=== PATIENT | female | born 1960 | race Caucasian/White ===

== ENCOUNTER 2016-04-28 11:12 | Outpatient (CLI) | payer MEDICAID | END 2016-04-28 11:13 | disposition home or self-care (01) | DX: M47.812 Spondylosis without myelopathy or radiculopathy, cervical region (principal); M50.323 Other cervical disc degeneration at C6-C7 level; R20.0 Anesthesia of skin; Z98.1 Arthrodesis status ==

== ENCOUNTER 2016-05-21 11:45 | Outpatient (CLI) | payer MEDICAID | END 2016-05-21 23:59 | disposition home or self-care (01) | DX: N39.0 Urinary tract infection, site not specified (principal) ==

== ENCOUNTER 2016-06-19 15:17 | Outpatient (CLI) | payer MEDICAID | END 2016-06-19 15:18 | disposition home or self-care (01) | DX: M50.31 Other cervical disc degeneration, high cervical region (principal); M47.892 Other spondylosis, cervical region; M48.02 Spinal stenosis, cervical region; M50.21 Other cervical disc displacement, high cervical region; M62.81 Muscle weakness (generalized); M79.603 Pain in arm, unspecified; Z98.1 Arthrodesis status ==

== ENCOUNTER 2016-11-09 10:12 | Outpatient (CLI) | payer MEDICAID ==
--- NOTE | 2016-11-12 15:47 | Mammography Report ---
DIGITAL SCREENING MAMMOGRAM: 11/09/2016 CLINICAL INDICATION: A 56-year-old with history of late childbearing, for screening. COMPARISON: 08/2015, 01/2009, 05/2007, 04/2007. TECHNIQUE: Routine CC and MLO projections were obtained of the breasts. Bilateral laterally exaggera lay craniocaudal views. FINDINGS: Scattered fibroglandular tissue is present within the breasts. There are no dominant raquel s, suspicious microcalcifications, or secondary signs of malignancy. In comparison to the previous st udies, there are no significant changes. ASSESSMENT: NO MAMMOGRAPHIC EVIDENCE OF MALIGNANCY. NO SIGNIFICANT INTERVAL CHANGES. RECOMMENDATION: Screening mammography is recommended annually. BIRADS category 1 - negative. STANDARD QUALIFYING STATEMENTS 1. This examination was reviewed with the aid of Computed-Aided Detection (CAD). 2. A negative or benign imaging report should not delay biopsy if clinically suspicious findings are present. Consider surgical consultation if warranted. More than 5% of cancers are not identified by i maging. 3. Dense breasts may obscure an underlying neoplasm. JOB #: [id number] EXT JOB #:[id number]
== END 2016-11-09 10:13 | disposition home or self-care (01) ==
LOC: DI.S 10:12
PROVIDERS: ATTEND Nurse Practitioner Family
DX: Z12.31 Encounter for screening mammogram for malignant neoplasm of breast (principal)
CPT/HCPCS: 77067

== ENCOUNTER 2016-11-15 10:58 | Outpatient (CLI) | payer MEDICAID ==
[2016-11-15 19:18] LABS: ALBUMIN/GLOBULIN RATIO 1.7 (1.0-2.2); BILIRUBIN,TOTAL 0.7 mg/dL (0.2-1.0); BUN - BLOOD UREA NITROGEN 20 mg/dL (6-20); CALCIUM 9.1 mg/dL (8.5-10.3); CARBON DIOXIDE - CO2 26 mmol/L (21-32); CHLORIDE 104 mmol/L (101-111); CHOL/HDL RATIO 5.8 (<4.4); CHOLESTEROL 279 mg/dL; CREATININE 0.9 mg/dL (0.4-1.0); GFR - MDRD 65 (>89); GLUCOSE 94 mg/dL (70-100); HDL CHOLESTEROL 48 mg/dL; LDL/HDL RATIO 3.6 (<4.4); POTASSIUM 4.2 mmol/L (3.5-5.0); SODIUM 139 mmol/L (135-145); TOTAL PROTEIN 7.2 g/dL (6.7-8.2); TRIGLYCERIDES 291 mg/dL; VLDL CHOLESTEROL 58 mg/dL
== END 2016-11-15 10:59 | disposition home or self-care (01) ==
LOC: LAB.F 10:58
PROVIDERS: ATTEND Nurse Practitioner Family
DX: E78.9 Disorder of lipoprotein metabolism, unspecified (principal)
CPT/HCPCS: 36415; 80053; 80061

== ENCOUNTER 2017-05-20 14:52 | Outpatient (CLI) | payer MEDICAID ==
[~2017-05-20 14:52] MED LIST: IOPAMIDOL-300 100 ML VIAL ONE
[2017-05-20] MEDS ORDERED: IOPAMIDOL-300 100 ML VIAL ONE (15:08)
[2017-05-20] MEDS ORDERED: IOPAMIDOL-300 100 ML VIAL IVP ONE ×3 (15:57→16:01)
--- NOTE | 2017-05-21 14:11 | CT Report ---
EXAM: CT ANGIOGRAM HEAD. CT SCAN OF THE HEAD WITHOUT AND WITH CONTRAST. EXAM DATE: 05/20/2017 04:11 PM CLINICAL HISTORY: VERTIGO, PRE-SYNCOPE W/NECK HYPEREXTENSTION. COMPARISON: CT head 12/17/2013 TECHNIQUE: - CT Scan Head: Using a multidetector scanner, axial images were acquired from the foramen magnum to the skull vertex prior to and following contrast administration. - CT Angiogram: Using a multidetector scanner, high-resolution axial images were acquired from the sk ull base through vertex following rapid infusion of intravenous contrast. Reformats: Multiplanar MIP reformats were reconstructed. Nascet criteria used for stenosis measurement. IV Contrast: 80 cc Isovue 300. In accordance with CT protocol optimization, one or more of the following dose reduction techniques w ere utilized for this exam: automated exposure control, adjustment of mA and/or KV based on patient s ize, or use of iterative reconstructive technique. FINDINGS: NON-CONTRAST HEAD: Parenchyma: No intraparenchymal hemorrhage. No evidence of mass, midline shift, or CT findings of inf arction. Andrews-white differentiation is distinct. Extraaxial Spaces: Normal for age. No subdural or epidural collections identified. Ventricles: Normal in size and position. Sinuses and orbits: Imaged paranasal sinuses, orbits, and mastoids show no significant abnormality. Bones: No evidence of fracture or calvarial defect. Other: None. POST-CONTRAST HEAD: No abnormal enhancement. CT ANGIOGRAM HEAD: The right carotid siphon is unremarkable. The left carotid siphon is unremarkable the visualized port ions of the vertebral arteries bilaterally are unremarkable the basilar artery is unremarkable. The r ight MCA is unremarkable. The ACAs bilaterally are unremarkable. The left MCA is unremarkable. The po sterior communicating arteries are not clearly visualized on either side, likely hypoplastic or aplas tic. The posterior cerebral arteries bilaterally are unremarkable. DURAL VENOUS SINUSES AND MAJOR CENTRAL VEINS: Patent. IMPRESSION: 1. No CT evidence of acute intracranial abnormality, specifically no CT evidence of acute infarct, in tracranial hemorrhage, mass effect, midline shift, or hydrocephalus. 2. No abnormal enhancement on the postcontrast CT head. 3. No CTA evidence of hemodynamically significant stenosis, dissection, occlusion, aneurysm, or vascu lar malformation within the intracranial arteries. 4. Concurrently obtained CTA neck is dictated separately. [facility] Referring Provider Line: [phone] SITE ID: [id number]
--- NOTE | 2017-05-21 14:26 | CT Report ---
EXAM: CT ANGIOGRAM NECK EXAM DATE: 05/20/2017 04:13 PM. CLINICAL HISTORY: VERTIGO, PRE-SYNCOPE W/NECK HYPEREXTENSTION. COMPARISON: None. TECHNIQUE: Routine axial helical imaging was performed from the skull base through the aortic arch. R econstructions: Routine multiplanar 3D MIP reconstructions. IV Contrast: Yes. 80 cc Isovue 300 Evalua tion of arterial stenosis is based on a NASCET method of measurement. In accordance with CT protocol optimization, one or more of the following dose reduction techniques w ere utilized for this exam: automated exposure control, adjustment of mA and/or KV based on patient s ize, or use of iterative reconstructive technique. FINDINGS: Right Carotid: The common carotid, internal carotid, and external carotid arteries are widely patent. No dissection, significant atherosclerotic plaque, or calcification identified. Medialized partially retropharyngeal course of the distal right common carotid artery and proximal cervical right interna l carotid artery. Left Carotid: The common carotid, internal carotid, and external carotid arteries are widely patent. No dissection, significant atherosclerotic plaque, or calcification identified. Vertebrals: The vertebral arteries are nearly codominant. There is approximately 20-30% narrowing of the right vertebral artery at C6-C7 level (series 2 image 221) due to degenerative spondylosis at C6- C7 level. The vertebrobasilar system shows no stenoses. Intracranial Circulation: Concurrently obtained CTA head is dictated separately. Other: Several calcifications within the left upper lobe of the lung, favored to represent calcified granulomata. Moderate multilevel degenerative spondylosis of the visualized spine status post C4-C5 A CDF, no acute fracture or malalignment. Only part of right thyroid lobe is visualized, is patient sta tus post thyroidectomy? The visualized soft tissues of the neck are otherwise unremarkable. IMPRESSION: 1. Approximately 20-30% narrowing of the right vertebral artery at C6-C7 level (series 2 image 221) d ue to degenerative spondylosis at C6-C7 level. 2. Otherwise no other CTA evidence of hemodynamically significant stenosis, dissection, occlusion, an eurysm, or vascular malformation within the extracranial arteries. Evaluation of carotid stenosis is by NASCET criteria . 3. CTA of the head is dictated separately. 4. Incidental findings as above. [facility] Referring Provider Line: [phone] SITE ID: [id number]
== END 2017-05-20 14:53 | disposition home or self-care (01) ==
LOC: DI 14:52
PROVIDERS: ATTEND Registered Nurse
DX: R42 Dizziness and giddiness (principal); R55 Syncope and collapse; M47.892 Other spondylosis, cervical region
CPT/HCPCS: 70496; 70498; Q9967

== ENCOUNTER 2017-05-30 13:56 | Emergency (ER) | payer MEDICAID ==
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
[2017-05-30 15:41] LABS: EOSINOPHILS # (AUTO) 0.1 10^3/uL (0.0-0.7); HGB - HEMOGLOBIN 11.4 g/dL (12.0-16.0); LYMPHOCYTES # (AUTO) 1.9 10^3/uL (1.5-3.5); LYMPHOCYTES % (AUTO) 41.2 %; MEAN CORPUSCULAR HEMOGLOBIN 35.8 pg (27.0-31.0); MEAN CORPUSCULAR HGB CONC 33.8 g/dL (32.0-36.0); MEAN CORPUSCULAR VOLUME 105.9 fL (81.0-99.0); MEAN PLATELET VOLUME 7.2 fL (7.9-10.8); MONOCYTES # (AUTO) 0.3 10^3/uL (0.0-1.0); MONOCYTES % (AUTO) 6.8 %; NEUTROPHILS # (AUTO) 2.2 10^3/uL (1.5-6.6); PLT - PLATELET COUNT 145 10^3/uL (130-450); RED BLOOD COUNT 3.19 10^6/uL (4.20-5.40); RED CELL DISTRIBUTION WIDTH 14.1 % (12.0-15.0); WHITE BLOOD COUNT 4.6 x10^3/uL (4.8-10.8)
[2017-05-30 15:46] LABS: ALBUMIN 4.2 g/dL (3.2-5.5); ALBUMIN/GLOBULIN RATIO 1.3 (1.0-2.2); BILIRUBIN,TOTAL 0.4 mg/dL (0.2-1.0); CALCIUM 8.9 mg/dL (8.5-10.3); CREATININE 1.1 mg/dL (0.4-1.0); TOTAL PROTEIN 7.4 g/dL (6.7-8.2)
[2017-05-30 16:28] LABS: CRP - C-REACTIVE PROTEIN 1.2 mg/dL (0-1.0)
[2017-05-30 16:38] LABS: THYROID STIMULATING HORMONE 48.91 uIU/mL (0.34-5.60)
--- NOTE | 2017-05-30 18:22 | MRI Report ---
EXAM: MRI BRAIN WITHOUT CONTRAST EXAM DATE: 05/30/2017 05:51 PM. CLINICAL HISTORY: Altered mentation, headaches, slurred speech, trouble finding words COMPARISON: CT angiogram 05/20/2017. TECHNIQUE: Multiplanar, multisequence T1-weighted and fluid-sensitive MR sequences of the brain were performed. Sequences optimized for routine evaluation. Other: None. IV Contrast: None. FINDINGS: Diffusion weighted sequence shows no evidence for acute infarct. There is no mass, mass effect, midl ine shift or abnormal extraaxial fluid collection. Size and configuration of the ventricles are normal. Few nonspecific white matter T2 hyperintensities in bilateral frontal lobes. Otherwise signal within the cortex and white matter appear unremarkable. Brainstem and cerebellum appear normal. Major intracranial flow voids appear normal. Globes, orbits, optic nerve sheath complex, optic chiasm, pituitary, cavernous sinus and Meckel's cav e appear normal. Paranasal sinuses and mastoid air cells appear well aerated. Marrow signal and extracranial soft tissue appear normal. Craniocervical junction and visualized upper cervical cord appear unremarkable. IMPRESSION: 1. No acute infarct, intracranial hemorrhage, midline shift or hydrocephalus. 2. Mild diffuse cerebral volume loss. 3. Few nonspecific subcortical frontal T2 hyperintensities, most likely chronic microvascular angiopa thy. [facility] Referring Provider Line: [phone] SITE ID: [id number]
[2017-05-30 19:30] VITALS: BP 131/87
[2017-06-01 14:06] LABS: ANA SCREEN NEGATIVE (NEGATIVE)
== END 2017-05-30 19:30 | disposition home or self-care (01) ==
LOC: ED 13:56
DX: R42 Dizziness and giddiness (principal); R41.0 Disorientation, unspecified; R94.6 Abnormal results of thyroid function studies; I10 Essential (primary) hypertension; E78.00 Pure hypercholesterolemia, unspecified; E03.9 Hypothyroidism, unspecified; F17.200 Nicotine dependence, unspecified, uncomplicated
CPT/HCPCS: 36415; 70551; 80053; 82607; 83690; 83735; 84439; 84443; 84481; 85025; 85651; 86038; 86140; 86780; 99283; 99284

== ENCOUNTER 2017-08-10 10:43 | Outpatient (CLI) | payer MEDICAID ==
[2017-08-10 18:11] LABS: THYROID STIMULATING HORMONE 0.11 uIU/mL (0.34-5.60)
[2017-08-10 18:53] LABS: FREE T4 (FREE THYROXINE) 0.87 ng/dL (0.58-1.64)
[2017-08-11 13:12] LABS: HEPATITIS C ANTIBODY NON-REACTIVE (NON-REACTIVE)
[2017-08-11 15:05] LABS: HIV AG/AB 4TH GEN NON-REACTIVE (NON-REACTIVE)
== END 2017-08-10 10:44 | disposition home or self-care (01) ==
LOC: LAB.F 10:43
PROVIDERS: ATTEND Nurse Practitioner Family
DX: E03.9 Hypothyroidism, unspecified (principal); Z72.51 High risk heterosexual behavior
CPT/HCPCS: 36415; 81599; 84439; 84443; 86592; 86803; 87389; 87491; 87591

== ENCOUNTER 2017-12-14 04:06 | Outpatient (CLI) | payer MEDICAID | END 2017-12-14 04:07 | disposition short-term general hospital (02) | LOC: EMS 04:06 | PROVIDERS: ATTEND Surgery | DX: S91.001A Unspecified open wound, right ankle, initial encounter (principal); R42 Dizziness and giddiness; W18.39XA Other fall on same level, initial encounter; Y93.01 Activity, walking, marching and hiking; Y92.000 Kitchen of unspecified non-institutional (private) residence as the place of occurrence of the external cause | CPT/HCPCS: A0425; A0427; A0999 ==

== ENCOUNTER 2018-09-17 14:36 | Observation (INO) | payer MEDICAID ==
--- NOTE | 2018-09-17 15:18 | ED Physician Documentation ---
History of Present Illness - Stated complaint Stated Complaint: HP BP/doesn't feel right - Chief complaint Chief Complaint: Neuro - History obtained from History obtained from: Patient - History of Present Illness Timing: Prior to arrival - Additonal information Additional information: Patient is a 58-year-old female, right-handed, presenting with left arm weak ness, particularly operational assistant strength for about the past 2-1/2 hours. Patient denies any particular inciting incident, trauma, or fall. Patient is otherwise been in her normal state of health. Patient is compliant with medications. She regularly uses oxycodone for chronic pain and took this medication earlier today. Patient also reports regular use of alcohol. Patient denies headache, but fuzzy vision bilaterally. Patient denies facial droop, speech changes, paresthesias, but reports that left arm feels weaker than the other. Patient denies chest pain, difficulty breathing, abdominal pain, urinary or stool changes, fever, or other concerns. No anticoagulation. No other improving or worsening factors to her symptoms noted. Review of Systems Constitutional: denies: Fever Eyes: reports: Decreased vision Cardiac: denies: Chest pain / pressure Respiratory: denies: Dyspnea GI: denies: Abdominal Pain Neurologic: reports: Focal weakness. denies: Numbness, Difficulty speaking, Head injury PD PAST MEDICAL HISTORY - Past Medical History Past Medical History: Yes Cardiovascular: Hypertension, High cholesterol Endocrine/Autoimmune: HyPOthyroidism Psych: Depression - Past Surgical History Past Surgical History: Yes - Present Medications Home Medications: Ambulatory Orders Medication Instructions Recorded Confirmed Bupropion HCl [Wellbutrin Sr] 150 mg PO BID 11/15/12 09/16/15 Cetirizine HCl [Zyrtec] 10 mg PO DAILY 11/15/12 09/16/15 Levothyroxine Sodium [Levoxyl] 125 mcg PO DAILY 11/15/12 09/16/15 Aspirin [Adult Low Dose Aspirin EC] 81 mg PO DAILY 09/16/15 09/16/15 Atenolol 25 mg PO DAILY 09/16/15 09/16/15 Baclofen [Lioresal] 20 mg PO TID 09/16/15 09/16/15 Ibuprofen 400 mg PO Q6HR 09/16/15 09/16/15 oxyCODONE [Roxicodone] 5 mg PO Q4-6H 09/16/15 09/16/15 - Allergies Allergies/Adverse Reactions: Allergies Allergy/AdvReac Type Severity Reaction Status Date / Time Sulfa (Sulfonamide AdvReac Severe Rash Verified 12/17/13 18:19 Antibiotics) Penicillins AdvReac Unknown Rash Verified 12/17/13 18:19 - Social History Does the pt smoke?: Yes Smoking Status: Current every day smoker Does the pt drink ETOH?: Yes ETOH Use: Wine Does the pt have substance abuse?: No - Immunizations Immunizations are current?: Yes - POLST Patient has POLST: No PD ED PE NORMAL - Vitals Vital signs reviewed: Yes - General General: Alert and oriented X 3, No acute distress, Well developed/nourished, Other (Smells of alcohol) - HEENT HEENT: Atraumatic, EOMI, Moist mucous membranes, Pharynx benign, Dentition benign. No: PERRL (Miotic, minimally reactive bilaterally) - Neck Neck: Supple, no meningeal sign - Cardiac Cardiac: RRR, No murmur - Respiratory Respiratory: No respiratory distress, Clear bilaterally - Abdomen Abdomen: Normal bowel sounds, Soft, Non tender, Non distended - Derm Derm: Normal color, Warm and dry, No rash - Extremities Extremities: No deformity, No tenderness to palpate, No edema - Neuro Neuro: Alert and oriented X 3, straightening press operator helper 2-12 intact, No sensory deficit, Normal speech. No: No motor deficit (Only motor deficit noted is left hand operational assistant strength. No other changes in sensation, strength, range of motion to any extremity.) - Psych Psych: Normal mood, Normal affect Results - Vitals Vitals: Vital Signs - 24 hr 09/17/18 09/17/18 09/17/18 14:39 14:50 15:29 Temperature 37.0 C Heart Rate 64 63 67 Respiratory 18 16 16 Rate Blood Pressure 120/78 125/72 112/73 O2 Saturation 100 100 100 09/17/18 09/17/18 16:39 17:10 Temperature Heart Rate 65 74 Respiratory 16 16 Rate Blood Pressure 117/72 108/75 O2 Saturation 99 100 Oxygen O2 Source Room air - EKG (time done) 1446 Rate: Rate (enter#) (64) Rhythm: NSR - Labs Labs: Laboratory Tests 09/17/18 09/17/18 09/17/18 16:00 16:00 16:00 WBC 5.2 RBC 3.50 L Hgb 12.0 Hct 35.8 L MCV 102.4 H MCH 34.3 H MCHC 33.5 RDW 12.6 Plt Count 220 MPV 7.2 L Neut # (Auto) 2.6 Lymph # (Auto) 2.1 [place] # (Auto) 0.2 Eos # (Auto) 0.2 Baso # (Auto) 0.1 Absolute Nucleated RBC 0.00 Nucleated RBC % 0.0 PT 10.3 INR 0.9 APTT 25.0 Sodium 140 Potassium 4.3 Chloride 103 Carbon Dioxide 22 Anion Gap 15.0 H BUN 25 H Creatinine 0.8 Estimated GFR (MDRD) 73 L Glucose 66 L Calcium 8.9 Total Bilirubin 0.4 AST 31 ALT 16 Alkaline Phosphatase 95 Troponin I Total Protein 7.0 Albumin 4.2 Globulin 2.8 Albumin/Globulin Ratio 1.5 Lipase 26 TSH Urine Color Urine Clarity Urine pH Ur Specific [place] Urine Protein Urine Glucose (UA) Urine Ketones Urine Occult Blood Urine Nitrite Urine Bilirubin Urine Urobilinogen Ur Leukocyte Esterase Ur Microscopic Review Urine Culture Comments Salicylates < 6.0 Urine Opiates Screen Ur Oxycodone Screen Urine Methadone Screen Ur Propoxyphene Screen Acetaminophen < 10 L Ur Barbiturates Screen Ur Tricyclics Screen Ur Phencyclidine Scrn Ur Amphetamine Screen U Methamphetamines Scrn U Benzodiazepines Scrn Urine Cocaine Screen U Cannabinoids Screen Ethyl Alcohol 273.1 Blood Type Antibody Screen 09/17/18 09/17/18 09/17/18 16:00 16:00 16:00 WBC RBC Hgb Hct MCV MCH MCHC RDW Plt Count MPV Neut # (Auto) Lymph # (Auto) [place] # (Auto) Eos # (Auto) Baso # (Auto) Absolute Nucleated RBC Nucleated RBC % PT INR APTT Sodium Potassium Chloride Carbon Dioxide Anion Gap BUN Creatinine Estimated GFR (MDRD) Glucose Calcium Total Bilirubin AST ALT Alkaline Phosphatase Troponin I < 0.04 Total Protein Albumin Globulin Albumin/Globulin Ratio Lipase TSH 0.39 Urine Color Urine Clarity Urine pH Ur Specific [place] Urine Protein Urine Glucose (UA) Urine Ketones Urine Occult Blood Urine Nitrite Urine Bilirubin Urine Urobilinogen Ur Leukocyte Esterase Ur Microscopic Review Urine Culture Comments Salicylates Urine Opiates Screen Ur Oxycodone Screen Urine Methadone Screen Ur Propoxyphene Screen Acetaminophen Ur Barbiturates Screen Ur Tricyclics Screen Ur Phencyclidine Scrn Ur Amphetamine Screen U Methamphetamines Scrn U Benzodiazepines Scrn Urine Cocaine Screen U Cannabinoids Screen Ethyl Alcohol Blood Type A NEGATIVE Antibody Screen NEGATIVE 09/17/18 17:20 WBC RBC Hgb Hct MCV MCH MCHC RDW Plt Count MPV Neut # (Auto) Lymph # (Auto) [place] # (Auto) Eos # (Auto) Baso # (Auto) Absolute Nucleated RBC Nucleated RBC % PT INR APTT Sodium Potassium Chloride Carbon Dioxide Anion Gap BUN Creatinine Estimated GFR (MDRD) Glucose Calcium Total Bilirubin AST ALT Alkaline Phosphatase Troponin I Total Protein Albumin Globulin Albumin/Globulin Ratio Lipase TSH Urine Color YELLOW Urine Clarity CLEAR Urine pH 5.0 Ur Specific [place] <=1.005 Urine Protein NEGATIVE Urine Glucose (UA) NEGATIVE Urine Ketones NEGATIVE Urine Occult Blood NEGATIVE Urine Nitrite NEGATIVE Urine Bilirubin NEGATIVE Urine Urobilinogen 0.2 (NORMAL) Ur Leukocyte Esterase NEGATIVE Ur Microscopic Review NOT INDICATED Urine Culture Comments NOT INDICATED Salicylates Urine Opiates Screen NEGATIVE Ur Oxycodone Screen POSITIVE H Urine Methadone Screen NEGATIVE Ur Propoxyphene Screen NEGATIVE Acetaminophen Ur Barbiturates Screen NEGATIVE Ur Tricyclics Screen NEGATIVE Ur Phencyclidine Scrn NEGATIVE Ur Amphetamine Screen NEGATIVE U Methamphetamines Scrn NEGATIVE U Benzodiazepines Scrn NEGATIVE Urine Cocaine Screen NEGATIVE U Cannabinoids Screen NEGATIVE Ethyl Alcohol Blood Type Antibody Screen PD MEDICAL DECISION MAKING - ED course Complexity details: reviewed results, re-evaluated patient, considered differential, d/w patient, d/w family, d/w [employer] consultant ED course: Patient presenting with distinct weakness in her left hand. Do have concern for possible palsies, paresthesias, paralysis, as well as central calls of these issues including stroke. Patient does admit to chronic use of opioids, however, do not feel she is exhibiting symptoms of opioid overdose or withdrawal. No other evidence of toxidromes present except for small alcohol. Patient does admit to wine earlier today. Again, do not feel that opioids or alcohol or the direct cause of this left hand change. Remainder physical exam is relatively unremarkable with no other Neurological deficit. Patient denies symptoms on raise high suspicion for other etiologies including traumatic, cardiac, pulmonary, intra-abdominal, or or infectious. Obtain CT head which did not find evidence of acute pathology. Screening lab work and urinalysis also returned relatively unremarkable except for positive for opioids and alcohol, as expected. Patient to need to experience weakness in her left operational assistant. Unable to obtain MRI at this facility at this time. Feel most comfortable with requesting admission to hospital for observation overnight and during that time patient can sober up and then receive her MRI in the morning to further evaluate for other intracranial pathology. Patient amenable to this plan and hospitalist agreeable. Departure - Departure Disposition: 66 [facility] DC/[facility] Clinical Impression: Weakness
[2018-09-17] MEDS ORDERED: SODIUM CHLORIDE 0.9% 1,000 ML IV ONE (15:32)
--- NOTE | 2018-09-17 16:06 | CT Report ---
Reason: Left hand weakness Procedure Date: 09/17/2018 Accession Number: [id number] / [id number] Procedure: CT - Head W/O Stroke Protocol CPT Code: FULL RESULT: EXAM: CT HEAD EXAM DATE: 09/17/2018 03:48 PM. CLINICAL HISTORY: Left hand weakness. COMPARISON: HEAD ANGIO 05/20/2017 3:38 PM. TECHNIQUE: Multiaxial CT images were obtained from the foramen magnum to the vertex. Reformats: Sagittal and coronal. IV contrast: None. In accordance with CT protocol optimization, one or more of the following dose reduction techniques were utilized for this exam: automated exposure control, adjustment of mA and/or KV based on patient size, or use of iterative reconstructive technique. FINDINGS: Parenchyma: No intraparenchymal hemorrhage. No evidence of mass, midline shift, or CT findings of acute infarction. Andrews-white differentiation is distinct. Extraaxial Spaces: Normal for age. No subdural or epidural collections identified. Ventricles: Normal in size and position. Sinuses and Orbits: Imaged paranasal sinuses, orbits, and mastoids show no significant abnormality. Bones: No evidence of fracture or calvarial defect. Other: None. IMPRESSION: No acute intracranial CT abnormality. There is no evidence of hemorrhage or mass-effect. RAD[facility] The critical test notification system was initiated by Dr. Madison Gerard at 04:04 PM on 09/17/2018. ADDENDUM: 09/17/18 16:38 The above critical test findings were discussed with Priya Johnson by Dr. Madison Gerard at 04:08 PM on 09/17/2018.
[2018-09-17 16:15] LABS: BASOPHILS # (AUTO) 0.1 10^3/uL (0.0-0.1); BASOPHILS % (AUTO) 1.6 %; EOSINOPHILS # (AUTO) 0.2 10^3/uL (0.0-0.7); EOSINOPHILS % (AUTO) 4.6 %; LYMPHOCYTES # (AUTO) 2.1 10^3/uL (1.5-3.5); LYMPHOCYTES % (AUTO) 39.4 %; MEAN CORPUSCULAR HEMOGLOBIN 34.3 pg (27.0-31.0); MEAN CORPUSCULAR HGB CONC 33.5 g/dL (32.0-36.0); MEAN CORPUSCULAR VOLUME 102.4 fL (81.0-99.0); MEAN PLATELET VOLUME 7.2 fL (7.9-10.8); MONOCYTES # (AUTO) 0.2 10^3/uL (0.0-1.0); MONOCYTES % (AUTO) 4.3 %; NEUTROPHILS # (AUTO) 2.6 10^3/uL (1.5-6.6); NEUTROPHILS % (AUTO) 50.1 %; PLT - PLATELET COUNT 220 10^3/uL (130-450); RED CELL DISTRIBUTION WIDTH 12.6 % (12.0-15.0); WHITE BLOOD COUNT 5.2 x10^3/uL (4.8-10.8)
[2018-09-17 16:30] LABS: ACETAMINOPHEN < 10 ug/mL (10-30); ALBUMIN 4.2 g/dL (3.2-5.5); ALBUMIN/GLOBULIN RATIO 1.5 (1.0-2.2); ALKALINE PHOSPHATASE 95 IU/L (42-121); ALT ALANINE AMINOTRANSFERASE 16 IU/L (10-60); AST ASPARTATE AMINOTRANSFERASE 31 IU/L (10-42); BILIRUBIN,TOTAL 0.4 mg/dL (0.2-1.0); BUN - BLOOD UREA NITROGEN 25 mg/dL (6-20); CALCIUM 8.9 mg/dL (8.5-10.3); CARBON DIOXIDE - CO2 22 mmol/L (21-32); CHLORIDE 103 mmol/L (101-111); CREATININE 0.8 mg/dL (0.4-1.0); GFR - MDRD 73 (>89); GLUCOSE 66 mg/dL (70-100); LIPASE 26 U/L (22-51); SALICYLATE < 6.0 mg/dL; SODIUM 140 mmol/L (135-145)
[2018-09-17 16:32] LABS: INR 0.9 (0.8-1.2); PT - PROTHROMBIN TIME 10.3 secs (9.9-12.6)
[2018-09-17 17:28] LABS: MUDS CUTOFF CONCENTRATIONS CUTOFF CONC BELOW:
[2018-09-17 17:41] LABS: BILIRUBIN,URINE NEGATIVE (NEGATIVE); GLUCOSE, URINE (UA) NEGATIVE (NEGATIVE); KETONES,URINE (UA) NEGATIVE (NEGATIVE); LEUKOCYTE ESTERASE, URINE NEGATIVE (NEGATIVE); NITRITE,URINE NEGATIVE (NEGATIVE); OCCULT BLOOD,URINE NEGATIVE (NEGATIVE); PROTEIN,URINE NEGATIVE (NEGATIVE); UROBILINOGEN,URINE 0.2 (NORMAL) E.U./dL (NORMAL)
[2018-09-17 17:45] LABS: CLARITY,URINE CLEAR (CLEAR)
[2018-09-17 17:50] LABS: AMPHETAMINE SCREEN,URINE NEGATIVE (NEGATIVE); BENZODIAZEPINES SCREEN, URINE NEGATIVE (NEGATIVE); COCAINE SCREEN URINE NEGATIVE (NEGATIVE); METHADONE SCREEN, URINE NEGATIVE (NEGATIVE); METHAMPHETAMINES SCREEN, URINE NEGATIVE (NEGATIVE); OPIATE SCREEN, URINE NEGATIVE (NEGATIVE); OXYCODONE SCREEN, URINE POSITIVE (NEGATIVE); PROPOXYPHENE SCREEN, URINE NEGATIVE (NEGATIVE); TRICYCLIC ANTIDEPRESSANT,URINE NEGATIVE (NEGATIVE)
[2018-09-17] MEDS ORDERED: ONDANSETRON 4 MG/2 ML VIAL IVP PRN (18:00)
[2018-09-17] MEDS ORDERED: SODIUM CHLORIDE FLUSH 0.9% 10 ML SYRINGE IVP PRN (18:00)
[2018-09-17] MEDS ORDERED: LORazepam 0.5 MG TABLET PO PRN (18:14)
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
[2018-09-17] MEDS ORDERED: IOVERSOL 320 100 ML VIAL IVP ONE ×2 (18:38→19:05)
--- NOTE | 2018-09-17 19:12 | CT Report ---
Reason: TIA/stroke Procedure Date: 09/17/2018 Accession Number: [id number] / [id number] Procedure: CT - ANGIO HEAD W CPT Code: FULL RESULT: EXAM: CT ANGIOGRAM HEAD. CT SCAN OF THE HEAD WITH CONTRAST. EXAM DATE: 09/17/2018 06:48 PM CLINICAL HISTORY: 58-year-old female, left-sided numbness. TIA/stroke. COMPARISON: Noncontrast CT head 09/17/2018 TECHNIQUE: - CT Scan Head: Using a multidetector scanner, axial images were acquired from the foramen magnum to the skull vertex following contrast administration. - CT Angiogram: Using a multidetector scanner, high-resolution axial images were acquired from the skull base through vertex following rapid infusion of intravenous contrast. Reformats: Multiplanar MIP reformats were reconstructed. Nascet criteria used for stenosis measurement. IV Contrast: 100 cc Optiray 320. In accordance with CT protocol optimization, one or more of the following dose reduction techniques were utilized for this exam: automated exposure control, adjustment of mA and/or KV based on patient size, or use of iterative reconstructive technique. FINDINGS: NON-CONTRAST HEAD: Noncontrast CT head has been performed and dictated separately. POST-CONTRAST HEAD: No abnormal enhancement. CT ANGIOGRAM HEAD: RIGHT: Internal Carotid artery: No evidence of dissection. No evidence of aneurysm along the intracranial ICA. Anterior Cerebral Artery: Patent without significant stenosis, aneurysm, or vascular malformation. Middle Cerebral Artery: Patent without significant stenosis, aneurysm, or vascular malformation. Posterior Cerebral Artery: Patent without significant stenosis, aneurysm, or vascular malformation. Posterior Communicating Artery: Not visualized, hypoplastic versus aplastic Vertebral Artery: Patent without significant stenosis. No evidence of dissection. LEFT: Internal Carotid artery: No evidence of dissection. No evidence of aneurysm along the intracranial ICA. Anterior Cerebral Artery: Patent without significant stenosis, aneurysm, or vascular malformation. Middle Cerebral Artery: Patent without significant stenosis, aneurysm, or vascular malformation. Posterior Cerebral Artery: Patent without significant stenosis, aneurysm, or vascular malformation. Posterior Communicating Artery: Not visualized, hypoplastic versus aplastic Vertebral Artery: Patent without significant stenosis. No evidence of dissection. CENTRAL: Anterior Communicating Artery: Patent. No aneurysm. Basilar Artery: Patent without significant stenosis. No aneurysm. DURAL VENOUS SINUSES AND MAJOR CENTRAL VEINS: Patent. IMPRESSION: 1. Noncontrast CT head has been performed and dictated separately. 2. No abnormal enhancement on the postcontrast CT head. 3. No CTA evidence of hemodynamically significant stenosis, large vessel occlusion, acute dissection, aneurysm, or vascular malformation within intracranial arteries. 4. Concurrently obtained CTA neck dictated separately. [facility]
--- NOTE | 2018-09-17 19:16 | CT Report ---
Reason: TIA/stroke Procedure Date: 09/17/2018 Accession Number: [id number] / [id number] Procedure: CT - ANGIO NECK W/WO CPT Code: FULL RESULT: EXAM: CT ANGIOGRAM NECK EXAM DATE: 09/17/2018 06:48 PM. CLINICAL HISTORY: 58-year-old female, left-sided numbness TIA/stroke. COMPARISON: HEAD W/O STROKE PROTOCOL 09/17/2018 3:40 PM. TECHNIQUE: Routine axial helical imaging was performed from the skull base through the aortic arch. Reconstructions: Routine multiplanar 3D MIP reconstructions. IV Contrast: 100 cc Optiray 320. Evaluation of arterial stenosis is based on a NASCET method of measurement. In accordance with CT protocol optimization, one or more of the following dose reduction techniques were utilized for this exam: automated exposure control, adjustment of mA and/or KV based on patient size, or use of iterative reconstructive technique. FINDINGS: Right Carotid: The common carotid, internal carotid, and external carotid arteries are widely patent. No dissection, significant atherosclerotic plaque, or calcification identified. Left Carotid: The common carotid, internal carotid, and external carotid arteries are widely patent. No dissection, significant atherosclerotic plaque, or calcification identified. Vertebrals: The vertebrobasilar system shows no stenoses. Intracranial Circulation: Concurrently obtained CTA head dictated separate. Other: The visualized lung apices are clear. Mild to moderate multilevel degenerative spondylosis of the visualized spine, status post prior fusion. The visualized soft tissues of the neck demonstrate no acute abnormality. IMPRESSION: 1. Normal neck CT angiogram. No hemodynamically significant stenoses. 2. Concurrently obtained CTA head dictated separately. [facility]
[2018-09-17] MEDS: ASPIRIN 325 MG TABLET PO SCH (19:38)
[2018-09-17] MEDS: PRENATAL VITAMIN TABLET PO SCH (19:38)
[2018-09-17] MEDS: THIAMINE 100 MG TABLET PO SCH (19:39)
[2018-09-17] MEDS ORDERED: NAPROXEN 250 MG TABLET PO PRN (19:46)
[2018-09-17] MEDS: oxyCODONE 5 MG TABLET PO PRN (19:49)
[2018-09-17] MEDS: SODIUM CHLORIDE 0.9% 1,000 ML IV SCH (19:50)
[2018-09-17] MEDS ORDERED: ATORVASTATIN 40 MG TABLET PO SCH (21:00)
[2018-09-17] MEDS: buPROPion SR 150 MG TABLET PO SCH (21:50)
[2018-09-17] MEDS: FAMOTIDINE 20 MG TABLET PO SCH (21:51)
[2018-09-18] MEDS: oxyCODONE 5 MG TABLET PO PRN ×4 (00:09→12:23)
[2018-09-18] MEDS: SODIUM CHLORIDE FLUSH 0.9% 10 ML SYRINGE IVP SCH ×2 (00:10→08:46)
[2018-09-18] MEDS: ACETAMINOPHEN 325 MG TABLET PO PRN ×2 (04:21→08:42)
[2018-09-18] MEDS: SODIUM CHLORIDE 0.9% 1,000 ML IV SCH (04:23)
[2018-09-18 05:44] LABS: EOSINOPHILS # (AUTO) 0.2 10^3/uL (0.0-0.7); EOSINOPHILS % (AUTO) 3.3 %; HGB - HEMOGLOBIN 10.5 g/dL (12.0-16.0); LYMPHOCYTES # (AUTO) 1.8 10^3/uL (1.5-3.5); LYMPHOCYTES % (AUTO) 38.8 %; MEAN CORPUSCULAR HEMOGLOBIN 34.2 pg (27.0-31.0); MEAN CORPUSCULAR HGB CONC 33.3 g/dL (32.0-36.0); MEAN CORPUSCULAR VOLUME 102.9 fL (81.0-99.0); MEAN PLATELET VOLUME 6.7 fL (7.9-10.8); MONOCYTES # (AUTO) 0.5 10^3/uL (0.0-1.0); MONOCYTES % (AUTO) 10.1 %; NEUTROPHILS # (AUTO) 2.2 10^3/uL (1.5-6.6); NEUTROPHILS % (AUTO) 46.8 %; PLT - PLATELET COUNT 209 10^3/uL (130-450); RED BLOOD COUNT 3.08 10^6/uL (4.20-5.40); RED CELL DISTRIBUTION WIDTH 12.5 % (12.0-15.0); WHITE BLOOD COUNT 4.7 x10^3/uL (4.8-10.8)
[2018-09-18 05:52] LABS: CALCIUM 8.4 mg/dL (8.5-10.3); CREATININE 0.7 mg/dL (0.4-1.0); MAGNESIUM 1.8 mg/dL (1.7-2.8)
[2018-09-18 06:01] LABS: CHOLESTEROL 177 mg/dL; HDL CHOLESTEROL 89 mg/dL; LDL CHOLESTEROL,CALCULATED 76 mg/dL; LDL/HDL RATIO 0.9 (<4.4); VLDL CHOLESTEROL 12 mg/dL
[2018-09-18] MEDS ORDERED: CYANOCOBALAMIN 1,000 MCG/ML VIAL IM ONE (07:42)
[2018-09-18] MEDS: ASPIRIN 325 MG TABLET PO SCH (08:39)
[2018-09-18] MEDS: buPROPion SR 150 MG TABLET PO SCH (08:40)
[2018-09-18] MEDS: PRENATAL VITAMIN TABLET PO SCH (08:40)
[2018-09-18] MEDS: FAMOTIDINE 20 MG TABLET PO SCH (08:41)
[2018-09-18] MEDS: THIAMINE 100 MG TABLET PO SCH (08:41)
[2018-09-18] MEDS ORDERED: CYANOCOBALAMIN 500 MCG TABLET PO SCH (09:00)
[2018-09-18] MEDS ORDERED: POLYETHYLENE GLYCOL 3350 17 GM PACKET PO SCH (09:00)
[2018-09-18] MEDS ORDERED: ATENOLOL 25 MG TABLET PO SCH (09:00)
[2018-09-18] MEDS ORDERED: ENOXAPARIN 40 MG/0.4 ML SYRINGE SUBQ SCH (09:00)
[2018-09-18] MEDS ORDERED: LEVOTHYROXINE 125 MCG TABLET PO SCH (09:00)
[2018-09-18] MEDS ORDERED: MINERAL OIL/PETROLAT OPHTH OINT EACHEYE PRN (11:58)
[2018-09-18 12:03] VITALS: BP 142/90
--- NOTE | 2018-09-18 12:03 | MRI Report ---
Reason: TIA/stroke Procedure Date: 09/18/2018 Accession Number: [id number] / [id number] Procedure: MRI - Brain W/O CPT Code: FULL RESULT: EXAM: MRI BRAIN WITHOUT CONTRAST EXAM DATE: 09/18/2018 11:21 AM. CLINICAL HISTORY: TIA/stroke. Left hand paresthesia. COMPARISON: BRAIN W/O 05/30/2017 5:20 PM HEAD W/O STROKE PROTOCOL 09/17/2018 3:40 PM HEAD ANGIO 09/17/2018 6:42 PM NECK ANGIO 09/17/2018 6:42 PM. TECHNIQUE: Multiplanar, multisequence T1-weighted and fluid-sensitive MR sequences of the brain were performed. Sequences optimized for routine evaluation. Other: None. IV Contrast: None. FINDINGS: Brain Volume: Normal for age. Parenchyma/Dura: No mass, acute infarct or hemorrhage. Mild scattered foci of T2/FLAIR bright white matter signal are seen in the cerebral hemispheres. No cortical signal abnormality. Ventricles/Cisterns: No hydrocephalus. No abnormal extra-axial fluid collection or hemorrhage. Orbits: Symmetric and unremarkable. Sella Turcica: The pituitary gland, cavernous sinuses, suprasellar cistern and optic chiasm are unremarkable. IAC: Symmetric and unremarkable. Vasculature: Normal signal flow void is seen in the major arterial structures at the skull base. Sinuses: No acute appearing sinus disease. Bones: No focal pathologic appearing marrow signal changes. Other: None. IMPRESSION: 1. Negative noncontrast MRI of the brain. No acute abnormality. No infarct, mass, or hemorrhage. 2. Mild scattered foci of T2/FLAIR bright white matter signal are seen in the cerebral hemispheres. This is nonspecific. This can be seen secondary to small vessel ischemic change. This is not significantly changed. [facility]
[2018-09-18] MEDS ORDERED: CARBOXYMETHYLCELLULOSE OPHTH DROPS EACHEYE PRN (12:20)
--- NOTE | 2018-09-18 13:16 | Discharge Plan ---
Discharge Plan Disposition: Home, Self Care Condition: Stable Prescriptions: Cyanocobalamin (Vitamin B-12) [Vitamin B-12] 1,000 mcg PO DAILY #10 capsule Diet: Regular Activity Restrictions: Activity as Tolerated Shower Restrictions: No (fall precaution) Instruction Topics: Atorvastatin tablets, Vitamin B12 oral, Baclofen tablets, Bupropion tablets Depression/Mood Disorders, Naproxen and naproxen sodium oral immediate-release tablets, Oxycodone tablets or capsules Additional Instructions or Follow Up instructions: You may followup your PCP in one week. your image studies including MRI of head, CTA of neck and head, ECHO are unremarkable. B12 is found low in your serum, and B12 is prescribed for you. The weakness in your hand is getting better. Advise you followup out-pt OT. Should your symptoms return or worsen, you may present ER, call 911 or call your PCP for help. Follow-Up Care: Outpatient Rehab - OT No Smoking: If you smoke, Please STOP! Call for help. Follow-up with: Alexei Irizarry MD [Primary Care Provider] -
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
[2018-09-19] MEDS ORDERED: ASPIRIN EC 81 MG TABLET PO SCH (09:00)
== END 2018-09-18 14:20 | disposition home or self-care (01) ==
LOC: ED 14:36 → MS2 18:00
PROVIDERS: ADMIT Nurse Practitioner Gerontology; ATTEND Nurse Practitioner Gerontology
DX: R53.1 Weakness (principal); E53.8 Deficiency of other specified B group vitamins; F10.10 Alcohol abuse, uncomplicated; Y90.8 Blood alcohol level of 240 mg/100 ml or more; F17.210 Nicotine dependence, cigarettes, uncomplicated; I10 Essential (primary) hypertension; E78.5 Hyperlipidemia, unspecified; E03.9 Hypothyroidism, unspecified; G89.29 Other chronic pain; M54.9 Dorsalgia, unspecified; F32.9 Major depressive disorder, single episode, unspecified; Z79.82 Long term (current) use of aspirin; Z79.891 Long term (current) use of opiate analgesic; Z79.1 Long term (current) use of non-steroidal anti-inflammatories (NSAID)
CPT/HCPCS: 36415; 70450; 70496; 70498; 70551; 80048; 80053; 80061; 80306; 80307; 80320; 80329; 81003; 82607; 83690; 83735; 84443; 84484; 85025; 85610; 85730; 86850; 86900; 86901; 93005; 93306; 96360; 96361; 96372; 99283; 99285; A9270; G0378; J1650; Q9967; 81001; 83721; 87086

== ENCOUNTER 2019-08-30 19:47 | Outpatient (CLI) | payer MEDICAID | END 2019-08-30 19:48 | disposition critical access hospital (66) | LOC: EMS 19:47 | PROVIDERS: ATTEND Surgery | DX: R41.82 Altered mental status, unspecified (principal); S01.81XA Laceration without foreign body of other part of head, initial encounter; W19.XXXA Unspecified fall, initial encounter | CPT/HCPCS: A0425; A0427; A0999 ==

== ENCOUNTER 2019-08-30 20:14 | Emergency (ER) | payer MEDICAID ==
[2019-08-30] MEDS ORDERED: ETOMIDATE 40 MG/20 ML VIAL IVP STA (20:22)
[2019-08-30] MEDS ORDERED: SUCCINYLCHOLINE 200 MG/10 ML VIAL IVP STA (20:22)
[2019-08-30] MEDS ORDERED: SODIUM CHLORIDE 0.9% 1,000 ML IV STA (20:22)
[2019-08-30] MEDS ORDERED: fentaNYL 100 MCG/2 ML VIAL IVP STA (20:22)
[2019-08-30] MEDS ORDERED: LIDOCAINE 1% ABBOJECT 50 MG/5 ML SYRINGE IVP STA (20:22)
[2019-08-30 20:40] LABS: INR 1.2 (0.8-1.2); PT - PROTHROMBIN TIME 13.1 secs (9.9-12.6)
[2019-08-30 20:43] LABS: MEAN CORPUSCULAR HEMOGLOBIN 27.6 pg (27.0-31.0); MEAN CORPUSCULAR HGB CONC 26.5 g/dL (32.0-36.0); MEAN CORPUSCULAR VOLUME 104.1 fL (81.0-99.0); MONOCYTES % (AUTO) 10.5 %; NEUTROPHILS % (AUTO) 54.1 %; PLT - PLATELET COUNT 289 10^3/uL (130-450); RED BLOOD COUNT 0.98 10^6/uL (4.20-5.40); RED CELL DISTRIBUTION WIDTH 13.7 % (12.0-15.0); WHITE BLOOD COUNT 2.4 x10^3/uL (4.8-10.8)
[2019-08-30] MEDS ORDERED: VASOPRESSIN 20 UNIT in DEXTROSE 5% 99 ML IV STA (20:50)
[2019-08-30] MEDS ORDERED: HYDROCORTISONE SUCCINATE 100 MG/2 ML VIAL IVP STA (20:50)
[2019-08-30 20:52] LABS: HGB - HEMOGLOBIN 2.7 g/dL (12.0-16.0)
[2019-08-30] MEDS ORDERED: EPINEPHrine ABBOJECT 1 MG/10 ML SYRINGE IVP STA (20:52)
[2019-08-30] MEDS ORDERED: VASOPRESSIN 20 UNIT/ML VIAL ONE (20:55)
[2019-08-30] MEDS ORDERED: HYDROCORTISONE SUCCINATE 100 MG/2 ML VIAL ONE (20:56)
--- NOTE | 2019-08-30 21:11 | ED Physician Documentation ---
History of Present Illness - Stated complaint Stated Complaint: ALOC/ PIZARRO - Chief complaint Chief Complaint: Neuro - History obtained from History obtained from: EMS - History of Present Illness Timing: Today (59-year-old woman brought in by ambulance because reportedly she had fallen earlier today around 11 AM. Again she was doing okay after that but then this evening became progressively altered and eventually obtunded. Paramedics noted that she takes oxycodone for chronic hip pain with pinpoint pupils and trialed 2 mg of Narcan prior to arrival without improvement. No history is available from the patient because of obtundation. Review of the chart suggests some level of alcoholism.) Review of Systems Unable to obtain: AMS PD PAST MEDICAL HISTORY - Past Medical History Cardiovascular: Hypertension, High cholesterol Neuro: Other Endocrine/Autoimmune: HyPOthyroidism : None Psych: Depression Musculoskeletal: Chronic back pain - Past Surgical History Past Surgical History: Yes Ortho: Other - Present Medications Home Medications: Ambulatory Orders Medication Instructions Recorded Confirmed Bupropion HCl [Wellbutrin Sr] 150 mg PO BID 11/15/12 09/18/18 Cetirizine HCl [Zyrtec] 10 mg PO DAILY 11/15/12 09/18/18 Levothyroxine Sodium [Levoxyl] 125 mcg PO DAILY 11/15/12 09/18/18 Aspirin [Adult Low Dose Aspirin EC] 81 mg PO DAILY 09/16/15 09/18/18 Baclofen [Lioresal] 20 mg PO TID 09/16/15 09/18/18 atenoloL [Atenolol] 25 mg PO DAILY 09/16/15 09/18/18 oxyCODONE [Roxicodone] 5 mg PO TID 09/16/15 09/18/18 Cyanocobalamin (Vitamin B-12) 1,000 mcg PO DAILY #10 capsule 09/18/18 [Vitamin B-12] Naproxen 500 mg PO BID 09/18/18 09/18/18 Pravastatin Sodium 80 mg PO DAILY PM 09/18/18 09/18/18 - Allergies Allergies/Adverse Reactions: Allergies Allergy/AdvReac Type Severity Reaction Status Date / Time Sulfa (Sulfonamide AdvReac Severe Rash Verified 12/17/13 18:19 Antibiotics) Penicillins AdvReac Unknown Rash Verified 12/17/13 18:19 - Social History Does the pt smoke?: Yes Smoking Status: Current every day smoker Does the pt drink ETOH?: Yes Does the pt have substance abuse?: No - Immunizations Immunizations are current?: Yes - POLST Patient has POLST: No PD ED PE NORMAL - Vitals Vital signs reviewed: Yes - General General: Other (She is obtunded, no purposeful motions. She winces with painful stimuli but does not localize. Smells heavily of tobacco. Dry mucous membranes, very pale.) - HEENT HEENT: Other (Small pupils; There is a 1.5 cm linear laceration just above the left eyebrow) - Neck Neck: Supple, no meningeal sign - Cardiac Cardiac: RRR, No murmur - Respiratory Respiratory: No respiratory distress, Clear bilaterally - Abdomen Abdomen: Soft, Non tender - Derm Derm: Normal color, Warm and dry - Extremities Extremities: Other (Low volume of peripheral musculature) - Neuro Eye Opening: None Motor: Withdraws to Pain Verbal: None GCS Score: 6 Results - Vitals Vitals: Vital Signs - 24 hr 08/30/19 08/30/19 08/30/19 20:15 20:23 20:30 Temperature 36.4 C L 34.3 C L Heart Rate 76 68 70 Respiratory 24 24 Rate Blood Pressure 101/41 L 91/63 32/20 L O2 Saturation 98 100 08/30/19 08/30/19 08/30/19 20:40 20:45 21:00 Temperature Heart Rate 69 70 62 Respiratory Rate Blood Pressure 85/65 L 72/61 L 45/34 L O2 Saturation 08/30/19 08/30/19 08/30/19 21:04 21:08 21:12 Temperature Heart Rate 62 69 62 Respiratory Rate Blood Pressure 79/68 L 87/53 L 104/72 O2 Saturation 08/30/19 08/30/19 08/30/19 21:17 22:00 22:35 Temperature 34.4 C L Heart Rate 66 55 L 75 Respiratory Rate Blood Pressure 84/61 L 41/30 L 105/75 O2 Saturation 08/30/19 08/30/19 08/30/19 22:42 22:54 23:55 Temperature 34.4 C L Heart Rate 80 72 62 Respiratory Rate Blood Pressure 93/66 89/70 L O2 Saturation 08/31/19 00:01 Temperature Heart Rate Respiratory Rate Blood Pressure 113/72 O2 Saturation Oxygen O2 Source Mechanical ventilator Oxygen Flow Rate 15 - EKG (time done) 2222 Rate: Rate (enter#) (80) Rhythm: NSR [place]: Normal Intervals: Normal [place] QRS: Normal Ischemia: ST elevation c/w ischemia (She has mild ischemic changes especially anteriorly notes that this was done post brief arrest) Computer interpretation: Agree with computer - Labs Labs: Laboratory Tests 08/30/19 08/30/19 08/30/19 20:28 20:28 20:28 WBC 2.4 L RBC 0.98 L Hgb 2.7 L* Hct 10.2 L* MCV 104.1 H MCH 27.6 MCHC 26.5 L RDW 13.7 Plt Count 289 MPV 10.0 Reticulocyte % (Auto) Neut # (Auto) Not Reportable Lymph # (Auto) Not Reportable [place] # (Auto) Not Reportable Eos # (Auto) Not Reportable Baso # (Auto) Not Reportable Absolute Nucleated RBC Not Reportable Band Neuts % (Manual) 20 H Abnorm Lymph % (Manual) Not Reportable Metamyelocytes % 10 H Myelocytes % 1 H Nucleated RBC % Not Reportable Neutrophils # (Manual) 1.0 L Lymphocytes # (Manual) 1.1 L Monocytes # (Manual) 0.0 Eosinophils # (Manual) 0.0 Basophils # (Manual) Not Reportable Nucleated RBCs 3 Differential Comment MANUAL DIFFERENTIAL Manual Slide Review Indicated Platelet Estimate NORMAL (130-450,000) Platelet Morphology NORMAL APPEARANCE RBC Morph Micro Appear 1+ ASHWINI CELLS Absolute Retic PT 13.1 H INR 1.2 APTT Bld Gas Analysis Time Sample Site ABG pH ABG pCO2 ABG pO2 ABG HCO3 ABG Total CO2 ABG O2 Saturation ABG Base Excess Joel Test Respiration Rate O2 Delivery Device Vent Mode FiO2 Tidal Volume PEEP Pressure Support Vent Sodium 132 L Potassium 4.4 Chloride 100 L Carbon Dioxide 9 L* Anion Gap 23.0 H BUN 25 H Creatinine 1.7 H Estimated GFR (MDRD) 31 L Glucose 49 L* Lactic Acid Calcium 8.0 L Magnesium 1.9 Total Bilirubin 1.0 AST 42 ALT 16 Alkaline Phosphatase 62 Total Creatine Kinase 463 H Troponin I High Sens Total Protein 4.7 L Albumin 2.2 L Globulin 2.5 Albumin/Globulin Ratio 0.9 L Lipase 123 H TSH Urine Color Urine Clarity Urine pH Ur Specific [place] Urine Protein Urine Glucose (UA) Urine Ketones Urine Occult Blood Urine Nitrite Urine Bilirubin Urine Urobilinogen Ur Leukocyte Esterase Urine RBC Urine WBC Ur Squamous Epith Cells Amorphous Sediment Urine Bacteria Urine Casts Ur Microscopic Review Urine Culture Comments Salicylates < 6.0 Urine Opiates Screen Ur Oxycodone Screen Urine Methadone Screen Ur Propoxyphene Screen Acetaminophen < 10 L Ur Barbiturates Screen Ur Tricyclics Screen Ur Phencyclidine Scrn Ur Amphetamine Screen U Methamphetamines Scrn U Benzodiazepines Scrn Urine Cocaine Screen U Cannabinoids Screen Ethyl Alcohol < 5.0 Blood Type Blood Type Recheck Antibody Screen Crossmatch IS Only 08/30/19 08/30/19 08/30/19 20:28 20:28 20:28 WBC RBC Hgb Hct MCV MCH MCHC RDW Plt Count MPV Reticulocyte % (Auto) Neut # (Auto) Lymph # (Auto) [place] # (Auto) Eos # (Auto) Baso # (Auto) Absolute Nucleated RBC Band Neuts % (Manual) Abnorm Lymph % (Manual) Metamyelocytes % Myelocytes % Nucleated RBC % Neutrophils # (Manual) Lymphocytes # (Manual) Monocytes # (Manual) Eosinophils # (Manual) Basophils # (Manual) Nucleated RBCs Differential Comment Manual Slide Review Platelet Estimate Platelet Morphology RBC Morph Micro Appear Absolute Retic PT INR APTT 22.6 L Bld Gas Analysis Time Sample Site ABG pH ABG pCO2 ABG pO2 ABG HCO3 ABG Total CO2 ABG O2 Saturation ABG Base Excess Joel Test Respiration Rate O2 Delivery Device Vent Mode FiO2 Tidal Volume PEEP Pressure Support Vent Sodium Potassium Chloride Carbon Dioxide Anion Gap BUN Creatinine Estimated GFR (MDRD) Glucose Lactic Acid > 10.0 H* Calcium Magnesium Total Bilirubin AST ALT Alkaline Phosphatase Total Creatine Kinase Troponin I High Sens Total Protein Albumin Globulin Albumin/Globulin Ratio Lipase TSH 48.26 H Urine Color Urine Clarity Urine pH Ur Specific [place] Urine Protein Urine Glucose (UA) Urine Ketones Urine Occult Blood Urine Nitrite Urine Bilirubin Urine Urobilinogen Ur Leukocyte Esterase Urine RBC Urine WBC Ur Squamous Epith Cells Amorphous Sediment Urine Bacteria Urine Casts Ur Microscopic Review Urine Culture Comments Salicylates Urine Opiates Screen Ur Oxycodone Screen Urine Methadone Screen Ur Propoxyphene Screen Acetaminophen Ur Barbiturates Screen Ur Tricyclics Screen Ur Phencyclidine Scrn Ur Amphetamine Screen U Methamphetamines Scrn U Benzodiazepines Scrn Urine Cocaine Screen U Cannabinoids Screen Ethyl Alcohol Blood Type Blood Type Recheck Antibody Screen Crossmatch IS Only 08/30/19 08/30/19 08/30/19 20:28 20:28 21:03 WBC RBC 0.98 L Hgb Hct MCV MCH MCHC RDW Plt Count MPV Reticulocyte % (Auto) 6.69 H Neut # (Auto) Lymph # (Auto) [place] # (Auto) Eos # (Auto) Baso # (Auto) Absolute Nucleated RBC Band Neuts % (Manual) Abnorm Lymph % (Manual) Metamyelocytes % Myelocytes % Nucleated RBC % Neutrophils # (Manual) Lymphocytes # (Manual) Monocytes # (Manual) Eosinophils # (Manual) Basophils # (Manual) Nucleated RBCs Differential Comment Manual Slide Review Platelet Estimate Platelet Morphology RBC Morph Micro Appear Absolute Retic 0.066 PT INR APTT Bld Gas Analysis Time Sample Site ABG pH ABG pCO2 ABG pO2 ABG HCO3 ABG Total CO2 ABG O2 Saturation ABG Base Excess Joel Test Respiration Rate O2 Delivery Device Vent Mode FiO2 Tidal Volume PEEP Pressure Support Vent Sodium Potassium Chloride Carbon Dioxide Anion Gap BUN Creatinine Estimated GFR (MDRD) Glucose Lactic Acid Calcium Magnesium Total Bilirubin AST ALT Alkaline Phosphatase Total Creatine Kinase Troponin I High Sens Total Protein Albumin Globulin Albumin/Globulin Ratio Lipase TSH Urine Color Urine Clarity Urine pH Ur Specific [place] Urine Protein Urine Glucose (UA) Urine Ketones Urine Occult Blood Urine Nitrite Urine Bilirubin Urine Urobilinogen Ur Leukocyte Esterase Urine RBC Urine WBC Ur Squamous Epith Cells Amorphous Sediment Urine Bacteria Urine Casts Ur Microscopic Review Urine Culture Comments Salicylates Urine Opiates Screen Ur Oxycodone Screen Urine Methadone Screen Ur Propoxyphene Screen Acetaminophen Ur Barbiturates Screen Ur Tricyclics Screen Ur Phencyclidine Scrn Ur Amphetamine Screen U Methamphetamines Scrn U Benzodiazepines Scrn Urine Cocaine Screen U Cannabinoids Screen Ethyl Alcohol Blood Type A NEGATIVE Blood Type Recheck A NEGATIVE Antibody Screen NEGATIVE Crossmatch IS Only See Detail 08/30/19 08/30/19 08/30/19 21:32 22:02 22:02 WBC RBC Hgb 7.5 L Hct 24.9 L MCV MCH MCHC RDW Plt Count MPV Reticulocyte % (Auto) Neut # (Auto) Lymph # (Auto) [place] # (Auto) Eos # (Auto) Baso # (Auto) Absolute Nucleated RBC Band Neuts % (Manual) Abnorm Lymph % (Manual) Metamyelocytes % Myelocytes % Nucleated RBC % Neutrophils # (Manual) Lymphocytes # (Manual) Monocytes # (Manual) Eosinophils # (Manual) Basophils # (Manual) Nucleated RBCs Differential Comment Manual Slide Review Platelet Estimate Platelet Morphology RBC Morph Micro Appear Absolute Retic PT INR APTT Bld Gas Analysis Time Sample Site ABG pH ABG pCO2 ABG pO2 ABG HCO3 ABG Total CO2 ABG O2 Saturation ABG Base Excess Joel Test Respiration Rate O2 Delivery Device Vent Mode FiO2 Tidal Volume PEEP Pressure Support Vent Sodium 129 L Potassium 4.1 Chloride 102 Carbon Dioxide 6 L* Anion Gap 21.0 H BUN 23 H Creatinine 1.7 H Estimated GFR (MDRD) 31 L Glucose 250 H Lactic Acid Calcium 6.6 L Magnesium Total Bilirubin AST ALT Alkaline Phosphatase Total Creatine Kinase Troponin I High Sens Total Protein Albumin Globulin Albumin/Globulin Ratio Lipase TSH Urine Color DARK YELLOW Urine Clarity CLOUDY Urine pH 5.0 Ur Specific [place] 1.025 Urine Protein 30 H Urine Glucose (UA) NEGATIVE Urine Ketones TRACE Urine Occult Blood NEGATIVE Urine Nitrite NEGATIVE Urine Bilirubin SMALL H Urine Urobilinogen 0.2 (NORMAL) Ur Leukocyte Esterase TRACE H Urine RBC 0-5 Urine WBC 11-25 H Ur Squamous Epith Cells RARE Squamous Amorphous Sediment Few Urine Bacteria Many H Urine Casts 0-2 Hyaline Casts Ur Microscopic Review INDICATED Urine Culture Comments INDICATED Salicylates Urine Opiates Screen NEGATIVE Ur Oxycodone Screen NEGATIVE Urine Methadone Screen NEGATIVE Ur Propoxyphene Screen NEGATIVE Acetaminophen Ur Barbiturates Screen NEGATIVE Ur Tricyclics Screen NEGATIVE Ur Phencyclidine Scrn NEGATIVE Ur Amphetamine Screen NEGATIVE U Methamphetamines Scrn NEGATIVE U Benzodiazepines Scrn NEGATIVE Urine Cocaine Screen NEGATIVE U Cannabinoids Screen NEGATIVE Ethyl Alcohol Blood Type Blood Type Recheck Antibody Screen Crossmatch IS Only 08/30/19 08/30/19 22:30 22:43 WBC RBC Hgb Hct MCV MCH MCHC RDW Plt Count MPV Reticulocyte % (Auto) Neut # (Auto) Lymph # (Auto) [place] # (Auto) Eos # (Auto) Baso # (Auto) Absolute Nucleated RBC Band Neuts % (Manual) Abnorm Lymph % (Manual) Metamyelocytes % Myelocytes % Nucleated RBC % Neutrophils # (Manual) Lymphocytes # (Manual) Monocytes # (Manual) Eosinophils # (Manual) Basophils # (Manual) Nucleated RBCs Differential Comment Manual Slide Review Platelet Estimate Platelet Morphology RBC Morph Micro Appear Absolute Retic PT INR APTT Bld Gas Analysis Time 2239 Sample Site A-LINE ABG pH 6.82 L* ABG pCO2 33 L ABG pO2 425 H* ABG HCO3 5.3 L ABG Total CO2 6.3 L* ABG O2 Saturation 99 H ABG Base Excess -27.8 L Joel Test NOT APPLICABLE Respiration Rate 20 O2 Delivery Device VENTILATOR Vent Mode SIMV FiO2 100.00 Tidal Volume 42 PEEP 5 Pressure Support Vent 10 Sodium Potassium Chloride Carbon Dioxide Anion Gap BUN Creatinine Estimated GFR (MDRD) Glucose Lactic Acid Calcium Magnesium Total Bilirubin AST ALT Alkaline Phosphatase Total Creatine Kinase Troponin I High Sens 11.1 Total Protein Albumin Globulin Albumin/Globulin Ratio Lipase TSH Urine Color Urine Clarity Urine pH Ur Specific [place] Urine Protein Urine Glucose (UA) Urine Ketones Urine Occult Blood Urine Nitrite Urine Bilirubin Urine Urobilinogen Ur Leukocyte Esterase Urine RBC Urine WBC Ur Squamous Epith Cells Amorphous Sediment Urine Bacteria Urine Casts Ur Microscopic Review Urine Culture Comments Salicylates Urine Opiates Screen Ur Oxycodone Screen Urine Methadone Screen Ur Propoxyphene Screen Acetaminophen Ur Barbiturates Screen Ur Tricyclics Screen Ur Phencyclidine Scrn Ur Amphetamine Screen U Methamphetamines Scrn U Benzodiazepines Scrn Urine Cocaine Screen U Cannabinoids Screen Ethyl Alcohol Blood Type Blood Type Recheck Antibody Screen Crossmatch IS Only - Rads (name of study) CT Head and Cspine Radiology: EMP read contemporaneously (NAD) CT A/P Radiology: EMP read contemporaneously (1. Free intraperitoneal air consistent with bowel perforation. Given amount of free air, consider gastric perforation although other sites of perforation are not excluded. Note that tip of enteric tube in LUQ is probably surrounded by thin gastric wall although could be extraluminal. 2. Small to moderate free fluid in the abdomen and pelvis with attenuation up to 16 HU. Mild hemorrhagic or proteinaceous component not excluded. 3. Suboptimal enhancement of abdominal viscera limits evaluation for injury. No significant visceral injury evident allowing for limitations of exam. No fractures seen. 4. Air within right heart chambers, probably introduced via intravenous injection. Additionally, there is reflux of contrast from right atrium into IVC and hepatic veins and contrast pooling within heart and central arterial structures suggesting cardiac dysfunction/poor cardiac output. 5. Colonic diverticula noted without definitive findings of diverticulitis. Areas of bowel wall thickening not excluded on limited exam. No bowel obstruction. 6. Chronic deformity of left hip. Osseous degenerative changes. ) Procedures - General procedure General procedure: A right brachial art line was placed, I was preparing to place a right radial art line, and that was at the point she lost pulses. CPR was performed and we briefly had pulses back. Her right radial artery was incredibly small so chose the brachial. We did not have the equipment to do a femoral art line. - Laceration (location) Facial laceration, above the left eyebrow Length in cm: 1.5 Wound type: Into subcut fat Wound Preparation: Irrigated copiously NS Skin layer closure: Dermabond Other: Tetanus booster given Complexity: Simple - Intubation Provider: Emergency physician Medications: Etomidate (Note that I had ordered 20 mg in the MAR but because of hemodynamic instability she was only given 10 mg), Succinylcholine (200 mg) Blade: Suri (3) Tube: Cuffed, Marked at teeth-enter cm (22) Confirmation: Direct visualization, Bilateral breath sounds, No abdominal breath sound, End tidal CO2, Pulse ox, Chest xray Complications: No compications - Central Line Central Line Preparation: Unable to obtain consent, Ultrasound used Central line location: Right IJ Central line type: Triple lumen Central line aftercare: Chlorhexidine disc placed, Secured, Placement confirmed, No pneumothorax, No complications PD MEDICAL DECISION MAKING - ED course ED course: 59-year-old woman presents by ambulance for altered mental status. She was attended to immediately and profoundly hypotensive. She had a left AC IV placed by paramedics prior to arrival and we put her on supplemental oxygen and I personally placed a left EJ second line. Using this she was given a large volume of crystalloid and push dose pressors (epinephrine 25 micrograms per push afew times) pending intubation. We started her on Levophed at fairly high dose, and I was entertaining a second pressor and hydrocortisone when her hemoglobin was resulted at 2.3. Uncrossed matched blood was ordered and rapidly infused (4 units total). She was intubated and a right IJ central line was placed. She received a D50 for the hypoglycemia. An OG was placed and gastric contents were clear. No clear melena from below. I spoke with her brother by phone, he is available at [phone]. I updated him. Currently the is working in [place] and cannot be reached by landline because his hearing is not good and only recognizes text on the phone which I am not able to do through the hospital system so asked the brother to give her an update. Differential diagnosis for her decompensation is broad and consider it includes acute GI or other bleeding, malignancy. Also some septic markers on her labs with the bands/metamyelocytes. In addition to the blood I ordered a reticulocyte count, CT of the head, C-spine, and abdomen pelvis. Cefepime and vancomycin were ordered after blood cultures. My view of the CAT scans show that the CT of the head and C-spine are grossly normal. The abdomen has free air and it looks like there is significant air in the right ventricle as well. Flagyl was added for anaerobic coverage. I discussed the case by phone with our on-call surgeon, Dr. Yo who felt she was much too sick to [facility] and [facility] was called for potential transfer. Shortly after that I went back into the room, her hemodynamic instability necessitated an arterial line. I was preparing to place a right radial A-line when she lost pulses and we were able to regain pulses after 2 rounds of CPR and 2 rounds of epinephrine. Her right radial artery was incredibly small and I did not feel like it was amenable to an A-line so I chose the right brachial noting that we do not have the equipment to place a femoral A-line here. After the second BMP, her calcium was's 6.6 and she was given an amp of calcium chloride. Also updated her [id number] by phone, Meli Morris, she is available at [phone] Also updated her brother by phone again, with the clear understanding that the prognosis is not good. Initial ABG after the code 6.82/33/425, bicarb 5.3, base excess -27.8, lactate 11.98. Bicarb drip started. FiO2 lowered. I spoke with Dr. Sana Ramsey, deputy sheriff generalist/bailiff at [facility]. She felt that after review of all the data, this case was medically futile and did not feel transport was likely in the patient's best interest. She did recommend that I talk to the surgeon in [place] on also increase the ventilator rate after we discussed that, she agreed with the bicarb drip. Other than that she felt that if the patient was to come over it would be best directed to the surgeon, not the ICU. Subsequently Dr. Chin, the on-call surgeon at [facility] did accept the patient in transfer, cobras were completed. She is borderline stable for transport but the benefits of rapid transport outweigh the risks. - Critical Care Time(min): 120 Time Includes: Direct patient care, Review records, Reassess patient, Document care, Coordinate care, Medical consult, Family consult for tx [facility] Data interpretation: Labs, Pulse ox, ABG, CXR Procedures included in critical care time: Peripheral IV, Blood draw, Gastric intubation, Ventilator mgmt Procedures excluded from critical care time: Central IV, Arterial cannulation, Intubation, EKG, CPR, See progress note (Laceration repair) Departure - Departure Disposition: 02 Transfer Acute Care Hosp Clinical Impression: Lactic acid acidosis, Free intraperitoneal air, Cardiac arrest Altered mental status Qualifiers: Altered mental status type: coma Coma depth: Caren coma 3-8 Coma timing: in the field (EMT or ambulance) Qualified Code(s): R40.2431 - [place] coma scale score 3-8, in the field [EMT or ambulance] Anemia Qualifiers: Anemia type: unspecified type Qualified Code(s): D64.9 - Anemia, unspecified Head injury Qualifiers: Encounter type: initial encounter Qualified Code(s): S09.90XA - Unspecified injury of head, initial encounter Facial laceration Qualifiers: Encounter type: initial encounter Qualified Code(s): S01.81XA - Laceration without foreign body of other part of head, initial encounter Respiratory failure Qualifiers: Chronicity: acute Respiratory failure complication: unspecified whether with hypoxia or hypercapnia Qualified Code(s): J96.00 - Acute respiratory failure, unspecified whether with hypoxia or hypercapnia Condition: Critical Discharge Date/Time: 08/31/19 00:11
--- NOTE | 2019-08-30 21:15 | XRAY Report ---
Reason: head inj/altered Procedure Date: 08/30/2019 Accession Number: [id number] / [id number] Procedure: XR - Chest 1 View X-Ray CPT Code: 12605 Final Report FULL RESULT: EXAM: CHEST RADIOGRAPHY EXAM DATE: 08/30/2019 09:00 PM. CLINICAL HISTORY: Head injury. Altered mental status. Intubation. COMPARISON: CHEST 2 VIEW PA/LAT 09/11/2014 10:55 AM. TECHNIQUE: 1 view. FINDINGS: Lungs/Pleura: Unchanged clustered small calcified granulomata in the left upper lobe. No focal infiltrate or evidence of edema. No pleural effusion or pneumothorax. Mediastinum: Within exam limitations, the cardiomediastinal contour is normal. Other: The patient is intubated. The endotracheal tube terminates approximately 3.5 cm above the reagan. IMPRESSION: Intubated patient. RADIA
[2019-08-30] MEDS ORDERED: IOVERSOL 320 100 ML VIAL IVP ONE (21:17)
--- NOTE | 2019-08-30 21:19 | XRAY Report ---
Reason: IJ line Procedure Date: 08/30/2019 Accession Number: [id number] / [id number] Procedure: XR - Chest for Line Placement CPT Code: Final Report FULL RESULT: EXAM: CHEST RADIOGRAPHY EXAM DATE: 08/30/2019 09:14 PM. CLINICAL HISTORY: IJ line. COMPARISON: CHEST 1 VIEW 08/30/2019 8:37 PM. TECHNIQUE: 1 view. FINDINGS: Lungs/Pleura: No focal opacities evident. No pleural effusion. No pneumothorax. Mediastinum: Within exam limitations, the cardiomediastinal contour is normal. Other: Endotracheal tube tip is unchanged. The tip is approximately 3.8 cm above the reagan. A right-sided jugular vein catheter has been placed the tip is in the superior vena cava. IMPRESSION: 1. No infiltrates. 2. No complications of the tubes and lines. RADIA
[2019-08-30 21:22] LABS: ACETAMINOPHEN < 10 ug/mL (10-30); ALBUMIN 2.2 g/dL (3.2-5.5); ALBUMIN/GLOBULIN RATIO 0.9 (1.0-2.2); ALKALINE PHOSPHATASE 62 IU/L (42-121); ALT ALANINE AMINOTRANSFERASE 16 IU/L (10-60); AST ASPARTATE AMINOTRANSFERASE 42 IU/L (10-42); BUN - BLOOD UREA NITROGEN 25 mg/dL (6-20); CHLORIDE 100 mmol/L (101-111); CK- CREATINE KINASE 463 IU/L (22-269); CREATININE 1.7 mg/dL (0.4-1.0); LIPASE 123 U/L (22-51); MAGNESIUM 1.9 mg/dL (1.7-2.8); SALICYLATE < 6.0 mg/dL; SODIUM 132 mmol/L (135-145); TOTAL PROTEIN 4.7 g/dL (6.7-8.2)
[2019-08-30 21:23] LABS: CARBON DIOXIDE - CO2 9 mmol/L (21-32); GLUCOSE 49 mg/dL (70-100)
[2019-08-30] MEDS ORDERED: DEXTROSE 50% ABBOJECT 25 GM/50 ML SYRINGE IVP STA (21:24)
[2019-08-30] MEDS ORDERED: CEFEPIME 2 GM in SODIUM CHLORIDE 0.9% MINIBAG 100 ML IV STA (21:26)
[2019-08-30] MEDS ORDERED: VANCOMYCIN INJ 1 GM in SODIUM CHLORIDE 0.9% 500 ML IV STA (21:26)
[2019-08-30 21:27] LABS: DIFFERENTIAL COMMENT MANUAL DIFFERENTIAL; PLATELET ESTIMATE, MANUAL NORMAL (130-450,000) (NORMAL); PLATELET MORPHOLOGY NORMAL APPEARANCE (NORMAL)
[2019-08-30 21:31] LABS: BAND NEUTROPHILS % (MANUAL) 20 %; LYMPHOCYTES # (MANUAL) 1.1 10^3/uL (1.5-3.5); LYMPHOCYTES % (MANUAL) 46 %; METAMYELOCYTES % (MANUAL) 10 %; MYELOCYTES % (MANUAL) 1 %
[2019-08-30 21:36] LABS: MUDS CUTOFF CONCENTRATIONS CUTOFF CONC BELOW:
[2019-08-30 21:39] LABS: BILIRUBIN,URINE SMALL (NEGATIVE); GLUCOSE, URINE (UA) NEGATIVE (NEGATIVE); KETONES,URINE (UA) TRACE mg/dL (NEGATIVE); LEUKOCYTE ESTERASE, URINE TRACE (NEGATIVE); NITRITE,URINE NEGATIVE (NEGATIVE); OCCULT BLOOD,URINE NEGATIVE (NEGATIVE); PROTEIN,URINE 30 mg/dL (NEGATIVE); UROBILINOGEN,URINE 0.2 (NORMAL) E.U./dL (NORMAL)
[2019-08-30 21:45] LABS: CLARITY,URINE CLOUDY (CLEAR)
[2019-08-30 21:52] LABS: ABSOLUTE RETICS # AUTO 0.066 10^6/uL (0.020-0.110); RED BLOOD COUNT 0.98 10^6/uL (4.20-5.40)
[2019-08-30] MEDS ORDERED: metroNIDAZOLE 500 MG/100 ML 500 MG/100 ML BAG IV ONE (21:55)
[2019-08-30 21:59] LABS: AMORPHOUS SEDIMENT,UR Few /LPF; BACTERIA,URINE Many /HPF (None Seen); CASTS, URINE 0-2 Hyaline Casts /LPF; RBC,URINE 0-5 /HPF (0-5); SQUAMOUS EPITHELIAL CELL,UR RARE Squamous (<= Few)
[2019-08-30 22:00] LABS: AMPHETAMINE SCREEN,URINE NEGATIVE (NEGATIVE); BENZODIAZEPINES SCREEN, URINE NEGATIVE (NEGATIVE); COCAINE SCREEN URINE NEGATIVE (NEGATIVE); METHADONE SCREEN, URINE NEGATIVE (NEGATIVE); METHAMPHETAMINES SCREEN, URINE NEGATIVE (NEGATIVE); OPIATE SCREEN, URINE NEGATIVE (NEGATIVE); OXYCODONE SCREEN, URINE NEGATIVE (NEGATIVE); PROPOXYPHENE SCREEN, URINE NEGATIVE (NEGATIVE); TRICYCLIC ANTIDEPRESSANT,URINE NEGATIVE (NEGATIVE)
[2019-08-30] MEDS ORDERED: PROPOFOL 500 MG/50 ML 500 MG/50 ML VIAL IV SCH (22:00)
[2019-08-30 22:05] LABS: HGB - HEMOGLOBIN 7.5 g/dL (12.0-16.0)
[2019-08-30 22:14] LABS: CALCIUM 6.6 mg/dL (8.5-10.3); CREATININE 1.7 mg/dL (0.4-1.0)
--- NOTE | 2019-08-30 22:23 | CT Report ---
Reason: head inj/altered Procedure Date: 08/30/2019 Accession Number: [id number] / [id number] Procedure: CT - CERVICAL SPINE WO CPT Code: Final Report FULL RESULT: EXAM: CT CERVICAL SPINE WITHOUT CONTRAST. DATE: 08/30/2019 09:58 PM. HISTORY: Head injury/altered. COMPARISONS: HEAD ANGIO 09/17/2018 6:42 PM. TECHNIQUE: Thin-section axial images were acquired of the cervical spine without contrast. Post-processing: Coronal and sagittal reformats. Other: None. In accordance with CT protocol optimization, one or more of the following dose reduction techniques were utilized for this exam: automated exposure control, adjustment of mA and/or KV based on patient size, or use of iterative reconstructive technique. FINDINGS: Alignment: No scoliosis or spondylolisthesis. Bones: Anterior fusion C4-C5 with disk spacer. No acute fractures. Interspace Levels/Facets: C1-C2: Unremarkable. C2-C3: Unremarkable. C3-C4: Mild disk height loss. Mild to moderate left facet arthropathy and some uncovertebral hypertrophic changes. Moderate to severe left neural foraminal stenosis. C4-C5: Mild to moderate bilateral facet disease and uncovertebral hypertrophic changes. Moderate to severe bilateral neural foraminal stenosis. Minimal central canal stenosis. C5-C6: Unremarkable. C6-C7: Moderate to severe disk height loss. Posterior disk osteophyte complex and mild bilateral facet disease. Moderate to severe right neural foraminal stenosis and mild to moderate left neural foraminal stenosis. C7-T1: Unremarkable. Musculature: Normal. No fatty atrophy. Other: No prevertebral soft tissue swelling. ET tube and NG tube both identified, but the tips are not seen. A right internal jugular central venous catheter is partially imaged, and there is a left external jugular IV. Some calcified granulomas in the left lung apex, otherwise unremarkable. IMPRESSION: Multilevel degenerative disk disease, and status post fusion from C4-C5. No fracture or subluxation. [facility]
--- NOTE | 2019-08-30 22:24 | CT Report ---
Reason: head inj/altered Procedure Date: 08/30/2019 Accession Number: [id number] / [id number] Procedure: CT - HEAD WO CPT Code: Final Report FULL RESULT: EXAM: CT HEAD EXAM DATE: 08/30/2019 09:58 PM. CLINICAL HISTORY: Head inj/altered. Fell today. COMPARISON: Head CT 09/17/2018. TECHNIQUE: Multiaxial CT images were obtained from the foramen magnum to the vertex. Reformats: Sagittal and coronal. IV contrast: None. In accordance with CT protocol optimization, one or more of the following dose reduction techniques were utilized for this exam: automated exposure control, adjustment of mA and/or KV based on patient size, or use of iterative reconstructive technique. FINDINGS: Parenchyma: No intraparenchymal hemorrhage. No focal mass-effect, midline shift, or CT findings of acute infarction. Andrews-white differentiation is grossly preserved. Extraaxial Spaces: Normal for age. No subdural or epidural collections identified. Ventricles: Normal in size and position. Sinuses and Orbits: Imaged paranasal sinuses, orbits, and mastoids show no significant abnormality. Interval intubation. Bones: No evidence of fracture or calvarial defect. IMPRESSION: 1. No acute intracranial abnormality evident. No intracranial hemorrhage or space-occupying lesion. [facility]
[2019-08-30] MEDS ORDERED: CALCIUM CHLORIDE ABBOJECT 1000MG/10 ML SYRINGE IVP STA (22:28)
--- NOTE | 2019-08-30 22:51 | CT Report ---
Reason: IV only, resp failure, low hgb, ? varices/ blood Procedure Date: 08/30/2019 Accession Number: [id number] / [id number] Procedure: CT - Abdomen/Pelvis W CPT Code: Final Report FULL RESULT: EXAM: CT ABDOMEN AND PELVIS EXAM DATE: 08/30/2019 09:58 PM. CLINICAL HISTORY: Fall today. Respiratory failure, low hemoglobin, ? varices/bleeding. COMPARISONS: None. TECHNIQUE: Routine helical CT imaging was performed through the abdomen and pelvis. IV contrast: 100 mL OPTIRAY 320. Enteric contrast: No. Reconstructions: Coronal and sagittal. In accordance with CT protocol optimization, one or more of the following dose reduction techniques were utilized for this exam: automated exposure control, adjustment of mA and/or KV based on patient size, or use of iterative reconstructive technique. FINDINGS: Lung Bases: Probable dependent atelectasis in the visualized lungs. Large amount of air in right ventricle and small amount of air in right atrium. Reflux of contrast from right atrium and IVC and hepatic veins. Liver: Limited assessment of liver due to suboptimal enhancement of viscera. There is small perihepatic fluid noted. Gallbladder/Bile Ducts: Possible gallbladder sludge. No gallstones evident. No significant biliary ductal dilation evident. Spleen: Normal splenic size. Perisplenic fluid is present. Further evaluation of spleen is limited due to suboptimal enhancement. Pancreas: Grossly unremarkable on limited study. Adrenal Glands: Normal. Kidneys: No significant perinephric fluid or hemorrhage. Suboptimal contrast enhancement limits evaluation for subtle injury. No significant injury evident allowing for limitations of exam. Peritoneal Cavity/Bowel: Large amount of free intraperitoneal air compatible with bowel perforation with site of bowel perforation not evident. Colonic diverticula are noted without definitive findings of diverticulitis. There is small to moderate free fluid throughout the abdomen and pelvis with attenuation measuring up to 16 HU in the pelvis. There is no evidence of small bowel obstruction. Areas of bowel thickening not excluded. Pelvic Organs: Bladder not well seen. Mari catheter present. Pelvic structures not well seen due to fluid. Vasculature: Atherosclerotic vascular disease. Contrast within heart and aorta. Air within right heart chambers as described above. Diminutive appearance aortic branch vessels in the abdomen and pelvis. Bones: Chronic abnormality of left hip with formative acetabulum and flattening of femoral head. Mild degenerative changes of right hip and lower spine. No acute fractures. Other: Enteric tube tip in left upper quadrant. Tip of enteric tube is predominantly surrounded by mesenteric fat (image 18, series 3) and could be extraluminal although is probably surrounded by thin gastric wall. Mari catheter in bladder. IMPRESSION: 1. Free intraperitoneal air consistent with bowel perforation. Given amount of free air, consider gastric perforation although other sites of perforation are not excluded. Note that tip of enteric tube in LUQ is probably surrounded by thin gastric wall although could be extraluminal. 2. Small to moderate free fluid in the abdomen and pelvis with attenuation up to 16 HU. Mild hemorrhagic or proteinaceous component not excluded. 3. Suboptimal enhancement of abdominal viscera limits evaluation for injury. No significant visceral injury evident allowing for limitations of exam. No fractures seen. 4. Air within right heart chambers, probably introduced via intravenous injection. Additionally, there is reflux of contrast from right atrium into IVC and hepatic veins and contrast pooling within heart and central arterial structures suggesting cardiac dysfunction/poor cardiac output. 5. Colonic diverticula noted without definitive findings of diverticulitis. Areas of bowel wall thickening not excluded on limited exam. No bowel obstruction. 6. Chronic deformity of left hip. Osseous degenerative changes. [facility] The call report notification system was initiated by Dr. Tati Redding at 10:29 PM on 08/30/2019. The above call report findings were discussed with Ralf Harrison by Dr. Tati Redding at 10:32 PM on 08/30/2019.
[2019-08-30 22:56] LABS: ABG HCO3 5.3 mmol/L (22.0-26.0); ABG PCO2 33 mmHg (34-45); ABG PH 6.82 (7.35-7.45); ABG PO2 425 mmHg (80-100)
[2019-08-30 22:57] LABS: ABG BASE EXCESS -27.8 mmol/L (-2.0-3.0); ABG OXYGEN SATURATION 99 % (94-98); ABG TCO2 6.3 MMOL/L (21.0-29.0)
[2019-08-30] MEDS ORDERED: SODIUM BICARBONATE 150 MEQ in DEXTROSE 5% 1,000 ML IV SCH (23:00)
[2019-08-30] MEDS ORDERED: SODIUM BICARBONATE ABBOJECT 50 MEQ/50 ML SYRINGE ONE ×2 (23:09→23:18)
[2019-08-30] MEDS ORDERED: DEXTROSE 5% 1,000 ML IV ONE (23:15)
[2019-08-30] MEDS ORDERED: TETANUS/DIPHTHERIA/PERTUSSIS 0.5 ML SYRINGE IM ONE (23:22)
[2019-08-31 00:04] VITALS: BP 113/72
== END 2019-08-31 00:11 | disposition short-term general hospital (02) ==
LOC: EDUNIT# → ED 20:14
DX: R40.2431 Glasgow coma scale score 3-8, in the field [EMT or ambulance] (principal); E87.2 Acidosis; I46.9 Cardiac arrest, cause unspecified; J96.00 Acute respiratory failure, unspecified whether with hypoxia or hypercapnia; D64.9 Anemia, unspecified; I95.9 Hypotension, unspecified; E16.2 Hypoglycemia, unspecified; S01.112A Laceration without foreign body of left eyelid and periocular area, initial encounter; S09.90XA Unspecified injury of head, initial encounter; W19.XXXA Unspecified fall, initial encounter; I10 Essential (primary) hypertension; F17.200 Nicotine dependence, unspecified, uncomplicated
CPT/HCPCS: 12011; 31500; 36415; 36430; 36556; 51702; 70450; 71045; 72125; 74177; 80048; 80053; 80306; 80307; 80320; 80329; 81001; 82550; 82803; 83605; 83690; 83735; 84443; 84484; 85014; 85018; 85025; 85045; 85610; 85730; 86850; 86900; 86901; 86920; 87040; 87086; 87181; 90471; 90715; 92950; 93005; 96365; 96366; 96368; 96375; 99291; 99292; J0330; J3370; P9016; Q9967; 81003; 94770